=== PATIENT | female | born 1990 | race Caucasian/White ===

== ENCOUNTER → 2023-12-13 14:17 | Outpatient (REF) | payer BC, SELFPAY | LOC: WDC 14:17 | PROVIDERS: ATTENDING PHYSICIAN Obstetrics & Gynecology; FAMILY PHYSICIAN Physician Assistant Medical | DX: N63.25 Unspecified lump in the left breast, overlapping quadrants (principal) | CPT/HCPCS: 76642 ==

== ENCOUNTER 2024-09-28 11:14 | Emergency (ER) | payer BC, SELFPAY ==
[2024-09-28 11:16] VITALS: BP 139/79
--- NOTE | 2024-09-28 12:03 | ED.GENMED ---
History of Present Illness
General
Chief Complaint: Cough
Source: patient
Exam Limitations: none
Time Seen by Provider: 09/28/24 12:02
Nursing documentation reviewed up to this point in time: agreed with
History of Present Illness
History of Present Illness:
34-year-old female with past medical history of IBS, anxiety presents emergency department today with concerns of persistent cough. Patient states that this started around 5 days ago. She went to urgent care 2 days ago for her symptoms and was
started on prednisone. She notes minimal improvement in her symptoms with the prednisone. She reports that today she had a coughing fit where she turned purple and felt short of breath for moment. This concerned her and she decided to report to
the ER for further evaluation. She took her 's albuterol after which seemed to help. Patient also notes a sore throat associated with this. She denies any trouble swallowing or trouble breathing. She has some mild chest tightness and
discomfort after the coughing fit. She denies abdominal pain, nausea, vomiting, diarrhea, constipation. Of note, patient's son and are sick with similar symptoms and her son is on amoxicillin for pinkeye.
Past History
Past History
ED Past Medical History: Psychiatric, Other (Irritable bowel syndrome) and Other (Ovarian cyst)
ED Past Surgical History: None
Social History
Tobacco: Non-smoker
Alcohol: Occasional
Drug: None
Personal: Single
Living: with family
Review of Systems
Review of Systems
All Other Systems: ROS reviewed and negative except as documented in HPI and ROS
Phy Exam
Physical Exam
Physical Exam:
General: Patient is well appearing and in no acute distress; non-toxic
Skin: Warm and dry, no rashes or lesions
Head: Normocephalic, atraumatic
Eyes: Sclera non-icteric. EOMs intact.
Mouth: No intraoral lesions.
Throat: Uvula midline, surgically absent tonsils, mild pharyngeal erythema
Cardiac: Regular rate and rhythm, no murmurs
Pulm: Normal respiratory effort, no wheezes, rales, rhonchi
Neuro: CN II-XII intact, no focal neurologic deficits.
Psychiatric: Appropriate mood and affect.
Course
Orders/Labs/Results
Orders:
Orders
09/28/24 12:16
Ipratropium/Albuterol Sulfate [Duoneb] 3 ml INH R NOW ONE
CR Chest - 2 Views Urgent
Comment:
Reason For Exam: shortness of breath, persistent cough
09/28/24 12:24
COVID-19 Antigen Urgent
Source: Nasal Swab
Complete Blood Count/With Diff Urgent
Comprehensive Metabolic Panel Urgent
Influenza A+B Rapid Molecular Urgent
ALEXYS Source: Nasal Swab
Specimen Description:
Abnormal Lab Results
09/28/24
12:24
WBC 11.6 H 10^3/uL
(4.8-10.8)
Abs Immat Gran (auto) 0.1 H 10^3/uL
(0-0.05)
Absolute Neuts (auto) 10.0 H 10^3/uL
(1.4-6.5)
Immature Gran % 0.7 H %
(0-0.5)
Neutrophils % 86.3 H %
(42.2-75.2)
Lymphocytes % 10.4 L %
(20.5-51.1)
Glucose 127 H mg/dl
(70-99)
ALT 44 H U/L
(0-35)
09/28/24 12:24
09/28/24 12:24
Vital Signs
Initial and Last Documented VS:
Initial Vital Signs
Temp Pulse Resp BP Pulse Ox
98.5 F 86 18 139/79 98
09/28/24 11:16 09/28/24 11:16 09/28/24 11:16 09/28/24 11:16 09/28/24 11:16
Last Documented Vital Signs
Temp Pulse Resp BP Pulse Ox
98.5 F 86 18 120/73 98
09/28/24 11:16 09/28/24 12:31 09/28/24 12:31 09/28/24 12:31 09/28/24 12:31
MDM/Problems Addressed
Differential Diagnosis Includes:
acute bronchitis, sinusitis, pneumonia, viral syndrome
MDM/Problems Addressed:
34-year-old female presents emergency department today with concerns of persistent cough. She has been trying prednisone and albuterol without relief. She also tried Tessalon Perles which did not help. She seen by urgent care 2 days ago. They
did not do chest x-ray at the time. Will check basic blood work and will send off chest x-ray to assess for pneumonia.
Chest x-ray negative for clear pneumonia. In light of persistent symptoms and failure of outpatient therapy, will trial azithromycin for bacterial bronchitis. Also prescribed albuterol inhaler as patient is found relief with that when she tried
her . Return precautions discussed. Patient stable for discharge.
*Pulse Oximetry
Patient hypoxic: no
*Critical Care Note
Total Time (30-74mins, 75-104mins- exclusive of procedures): Not Applicable
Data Reviewed
Review of Other/Old Records Reveals: Records (Reviewed ER physician documentation from 10/07/2017 patient seen for ovarian cyst rupture)
Source: patient and records
ED Attending Note
-
Portions of this chart may have been created with voice recognition software.� Occasional wrong word or��sound alike� substitutions may have occurred due to the inherent limitations of voice recognition software.
Discharge Plan
Departure
Patient Disposition: Home (Routine Discharge)
Date of Disposition: 09/28/24
Time of Disposition: 13:48
Patient with high blood pressure during this ER visit?: Yes
Discharge Problem:
Acute bronchitis
Instructions: Acute Bronchitis, Adult (DC), BLOOD PRESSURE
Prescriptions:
New
albuterol sulfate 90 mcg/actuation HFA aerosol inhaler
2 puff inhalation Q6H PRN (Reason: shortness of breath or wheezing) Qty: 6.7 0RF
azithromycin [Zithromax Z-Duke] 250 mg tablet
250 mg PO DAILY Qty: 6 0RF
No Action
sertraline 50 MG tablet
75 mg PO DAILY
oxycodone-acetaminophen 5 MG/325 MG tablet
1 tab PO Q4HPRN PRN (Reason: pain) Qty: 9 0RF
Referrals:
Amy Dowling MD [Family Provider] -
Activity Restrictions/Additional Instructions:
Please continue you Prednisone.
Please follow up with your primary care provider.
Please return emergency department should you develop any acute worsening of your symptoms, trouble breathing, trouble swallowing, coughing up of blood clot, fainting spells, lightheadedness, dizziness, or any other signs or symptoms worrisome to
you.
Interventions
Interventions:
*Risk Screen - Suicide Last Done: 09/28/24 11:16
*General Assessment Last Done: 09/28/24 11:16
*ED- Fall Risk Assessment Last Done: 09/28/24 11:16
*ED COVID-19 Vaccine History Last Done: 09/28/24 11:16
*Nursing Disposition Last Done: 09/28/24 14:01
ED- Pulmonary Assessment Last Done: 09/28/24 13:49
Discharge Date and Time
Discharge Date/Time: 09/28/24 14:01
Print Language: TURKISH
[2024-09-28 12:31] VITALS: BP 120/73
[2024-09-28 12:33] LABS: % Basophils 0.3 % (0-2); % Eosinophils 0.3 % (0-6); % Immature Granulocytes 0.7 % (0-0.5); % Lymphocytes 10.4 % (20.5-51.1); % Neutrophils 86.3 % (42.2-75.2); Absolute Immature Granulocytes 0.1 10^3/uL (0-0.05); Absolute Lymphocytes 1.2 10^3/uL (1.2-3.4); Absolute Monocytes 0.2 10^3/uL (0.1-0.6); Hemoglobin 12.9 g/dL (12.0-16.0); Mean Corp Hgb Conc. 33.9 g/dL (33.0-37.0); Mean Corpuscular Hgb 30.7 pg (27.0-31.0); Mean Corpuscular Volume 90.5 fL (81.0-99.0); Mean Platelet Volume 10.4 fL (7.4-10.4); Nucleated Red Blood Cells % 0 %; Platelet Count 251 10^3/uL (130-400); Red Cell Dist. Width 12.9 % (11.5-14.5); White Blood Cell Count 11.6 10^3/uL (4.8-10.8)
[2024-09-28 12:44] LABS: ALT (SGPT) 44 U/L (0-35); AST (SGOT) 30 U/L (14-36); Albumin 4.6 g/dl (3.5-5.0); Alkaline Phosphatase 68 U/L (38-126); Blood Urea Nitrogen 15 mg/dl (7-17); Calcium 9.6 mg/dl (8.4-10.2); Carbon Dioxide 23 mmol/L (22-30); Chloride 105 mmol/L (98-107); Glucose 127 mg/dl (70-99); Potassium 4.2 mmol/L (3.5-5.1); Sodium 140 mmol/L (135-145); Total Bilirubin 0.5 mg/dl (0.2-1.3); eGFR > 60.00
[2024-09-28 12:48] LABS: COVID-19 Antigen Negative (Negative)
[2024-09-28] MEDS: DUONEB 3 ML INH (12:50)
== END 2024-09-28 14:01 | disposition home or self-care (01) ==
LOC: EMR 11:14
PROVIDERS: Physician Assistant; EMERGENCY PHYSICIAN Emergency Medicine; FAMILY PHYSICIAN Obstetrics & Gynecology Gynecology
DX: J20.9 Acute bronchitis, unspecified (principal); Z11.52 Encounter for screening for COVID-19; R03.0 Elevated blood-pressure reading, without diagnosis of hypertension; K58.9 Irritable bowel syndrome, unspecified; F41.9 Anxiety disorder, unspecified; Z88.1 Allergy status to other antibiotic agents
CPT/HCPCS: 99283; 94640; 71046; 80053; 85025; 87502; 87811

== ENCOUNTER 2025-05-07 19:35 | Emergency (ER) | payer BC, SELFPAY ==
[2025-05-07 19:43] VITALS: BP 155/95
[2025-05-07 19:55] LABS: Glucose - Point of Care 88 mg/dl (70-99)
[2025-05-07 20:01] LABS: Hematocrit 43.0 % (37.0-47.0); Hemoglobin 14.4 g/dL (12.0-16.0); Mean Corp Hgb Conc. 33.5 g/dL (33.0-37.0); Mean Corpuscular Volume 91.3 fL (81.0-99.0); Nucleated Red Blood Cells % 0 %; Platelet Count 265 10^3/uL (130-400); Red Cell Dist. Width 12.3 % (11.5-14.5)
[2025-05-07 20:11] LABS: HCG, Serum Qualitative Screen Negative
[2025-05-07 20:18] LABS: ALT (SGPT) 23 U/L (0-35); AST (SGOT) 26 U/L (14-36); Albumin 5.3 g/dl (3.5-5.0); Alkaline Phosphatase 37 U/L (38-126); Blood Urea Nitrogen 12 mg/dl (7-17); Calcium 9.9 mg/dl (8.4-10.2); Carbon Dioxide 23 mmol/L (22-30); Chloride 107 mmol/L (98-107); Glucose 84 mg/dl (70-99); Potassium 3.7 mmol/L (3.5-5.1); Sodium 141 mmol/L (135-145); Total Protein 8.0 g/dl (6.3-8.2); eGFR > 60.00
[2025-05-07 21:42] LABS: Glucose - Point of Care 99 mg/dl (70-99)
[2025-05-07 22:36] VITALS: BP 114/74; BP 130/75; BP 132/84; PULSE 63; PULSE 67; PULSE 74
--- NOTE | 2025-05-07 23:19 | ED.GENMED ---
History of Present Illness
General
Chief Complaint: Fainting Sensation
Source: patient
Exam Limitations: none
Time Seen by Provider: 05/07/25 22:23
Nursing documentation reviewed up to this point in time: agreed with
History of Present Illness
History of Present Illness:
Patient to the emergency room with complaint of near syncopal event ophelia. States she is currently taking Zepbound. Tonight she had a glass of wine and approximately 1-1/2 hours after she developed lightheadedness and weakness. She checked her
blood sugar and her blood sugar was 80. She had something to eat to try and bring her sugars up and started to feel little bit better short time after that she developed tremors. Was brought to the emergency room by her spouse for evaluation. On
arrival to the emergency department all of her symptoms had subsided.
Past History
Past History
ED Past Medical History: Psychiatric, Other (Irritable bowel syndrome) and Other (Ovarian cyst)
ED Past Surgical History: None
Social History
Tobacco: Non-smoker
Alcohol: Occasional
Drug: None
Personal: Single
Living: with family
Review of Systems
Review of Systems
Allergies reviewed?: Yes
All Other Systems: ROS reviewed and negative except as documented in HPI and ROS
Constitutional: Reports no symptoms
EENT: Reports no symptoms
Respiratory: Reports no symptoms
Cardiac: Reports no symptoms
ABD/GI: Reports nausea
: Reports no symptoms
Musculoskeletal: Reports no symptoms
Skin: Reports no symptoms
Neurological: Reports dizzy and weakness
Psychiatric: Reports no symptoms
Phy Exam
General Physical Exam
General Presentation: well appearing and no apparent distress
General Skin: warm and dry
General Habitus: normal
General Mental: alert
Cardiovascular Exam
Cardiovascular Exam: regular rate/rhythm
Pulmonary Exam
Pulmonary Exam: lungs clear and no respiratory distress
Gastrointestinal Exam
Gastrointestinal Exam: non tender, soft, no pulsatile mass and non distended
Neurological Exam
Neurological Exam: alert and oriented x3
Musculoskeletal Exam
Musculoskeletal Exam: full ROM
Skin Exam
Skin Exam: normal color, warm/dry and no rash
Psychiatric Exam
Psychiatric Exam: normal mood/affect
Course
Orders/Labs/Results
Orders:
Orders
05/07/25 19:48
EKG [Electrocardiogram (*1)] Urgent
Reason for Study: Syncope
EKG- Treatment ONCE
05/07/25 19:52
Complete Blood Count/With Diff Urgent
Comprehensive Metabolic Panel Urgent
HCG, Serum Qualitative Screen Urgent
Comment: ADD ON
05/07/25 19:54
Add On- LAB Urgent
Tests Added?: beta hcq qual
05/07/25 22:27
Orthostatic VS- Treatment ONCE
Abnormal Lab Results
05/07/25
19:52
Alkaline Phosphatase 37 L U/L
(38-126)
Albumin 5.3 H g/dl
(3.5-5.0)
05/07/25 19:52
05/07/25 19:52
Vital Signs
Initial and Last Documented VS:
Initial Vital Signs
Temp Pulse Resp BP Pulse Ox
98.2 F 85 16 155/95 100
05/07/25 19:43 05/07/25 19:43 05/07/25 19:43 05/07/25 19:43 05/07/25 19:43
Last Documented Vital Signs
Temp Pulse Resp BP Pulse Ox
98.2 F 85 16 155/95 100
05/07/25 19:43 05/07/25 19:43 05/07/25 19:43 05/07/25 19:43 05/07/25 19:43
*Radiology
Radiology exam reviewed: radiology read reviewed
*Pulse Oximetry
SaO2: 100
Oxygen Mode of Delivery: Room air
Patient hypoxic: no
*Critical Care Note
Total Time (30-74mins, 75-104mins- exclusive of procedures): Not Applicable
Update Note
Update Note:
Patient to the emergency department with near syncope symptoms after drinking a glass of wine tonight at home. She is currently taking Zepbound and is concerned that the wine and Zepbound interacted. She noted dizziness sweating feeling like she
was going to pass out. She decided to come to the emergency department for evaluation however her symptoms resolved prior to arriving here. She has remained asymptomatic in the ED. Labs reviewed no concerning findings. No concerning findings on
physical exam. Vital signs are stable, negative tilt. Will discharge home. She will follow-up with her family doctor. She was given instructions on signs and symptoms to return to the emergency department and she is agreeable to this plan.
ED Attending Note
-
Portions of this chart may have been created with voice recognition software.� Occasional wrong word or��sound alike� substitutions may have occurred due to the inherent limitations of voice recognition software.
Discharge Plan
Departure
Patient Disposition: Home (Routine Discharge)
Date of Disposition: 05/07/25
Time of Disposition: 22:34
Patient with high blood pressure during this ER visit?: No
Condition: Good
Covid-19: Not Applicable
Discharge Problem:
Near syncope
Instructions: Near Fainting (DC)
Prescriptions:
No Action
sertraline 50 MG tablet
75 mg PO DAILY
oxycodone-acetaminophen 5 MG/325 MG tablet
1 tab PO Q4HPRN PRN (Reason: pain) Qty: 9 0RF
albuterol sulfate 90 mcg/actuation HFA aerosol inhaler
2 puff inhalation Q6H PRN (Reason: shortness of breath or wheezing) Qty: 6.7 0RF
azithromycin [Zithromax Z-Duke] 250 mg tablet
250 mg PO DAILY Qty: 6 0RF
Referrals:
Ambar Dowling PA-C [Family Provider, Family Practice] - Tomorrow
Activity Restrictions/Additional Instructions:
Return to the emergency department for any changes in/worsening of your symptoms.
Interventions
Interventions:
*Risk Screen - Suicide Last Done: 05/07/25 19:43
*General Assessment Last Done: 05/07/25 19:43
*ED- Fall Risk Assessment Last Done: 05/07/25 19:43
*ED COVID-19 Vaccine History Last Done: 05/07/25 19:43
*ED Influenza Vaccine History Last Done: 05/07/25 19:43
*Nursing Disposition Last Done: 05/07/25 22:40
ED- Cardiac Assessment Last Done: 05/07/25 22:37
ED- Neurological Assessment Last Done: 05/07/25 22:37
Discharge Date and Time
Discharge Date/Time: 05/07/25 22:40
Print Language: IRANIAN
== END 2025-05-07 22:40 | disposition home or self-care (01) ==
LOC: EMR 19:35
PROVIDERS: Emergency Medicine; EMERGENCY PHYSICIAN Emergency Medicine; FAMILY PHYSICIAN Physician Assistant Medical
DX: R55 Syncope and collapse (principal); R42 Dizziness and giddiness
CPT/HCPCS: 99284; 80053; 82962; 84703; 85025; 93005